=== PATIENT | female | born 1995 | race African-American/Black ===

== ENCOUNTER 2025-03-15 19:08 | Emergency (ER) | payer MEDICAID ==
[~2025-03-15] VITALS: Ht 162.6 cm; Wt 82.0 kg
[2025-03-15 19:14] VITALS: O2SAT 100
[2025-03-15] MEDS: MAGNESIUM/ALUMINUM HYDROXIDE/SIMETHICONE 30ML UDC PO STA (20:20)
[2025-03-15] MEDS: METOCLOPRAMIDE HCL 10MG/2ML VIAL IV STA (20:21)
[2025-03-15] MEDS: FAMOTIDINE 20MG/2ML VIAL IV STA (20:21)
[2025-03-15] MEDS: DIPHENHYDRAMINE 50MG/ML VIAL IV ONE (20:21)
[2025-03-15] MEDS: SODIUM CHLORIDE 0.9% 1,000 ML IV ONE (20:22)
[2025-03-15 21:05] LABS: HEMATOCRIT. 43.5 % (36.0-48.0); HEMOGLOBIN. 14.2 g/dL (12.0-16.0); MEAN PLATELET VOLUME 11.5 fl (7.4-10.4); PLATELET 235 x1000/uL (130-400); RED BLOOD CELL COUNT 4.65 mill/uL (4.2-5.4); RED CELL DISTRIBUTION WIDTH 13.7 % (11.6-14.6)
[2025-03-15 21:19] LABS: CREATININE 0.8 mg/dL (0.6-1.0); UREA NITROGEN BLOOD 8 mg/dL (9-23)
[2025-03-15 21:21] LABS: ASPARTATE AMINOTRANSFERASE 28 IU/L (<34); BILIRUBIN DIRECT 0.2 mg/dL (<=3.0); BILIRUBIN TOTAL 0.9 mg/dL (0.1-1.0); PROTEIN TOTAL 8.2 g/dL (6.0-8.3)
[2025-03-15 21:39] LABS: HCG SCREEN NEGATIVE
[2025-03-15 21:55] LABS: BAND% 2.0 % (1.0-6.0); LYMPHOCYTES % MANUAL 10.0 % (20.0-60.0); MONOCYTES % MANUAL 3.0 % (2.0-8.0); NEUTROPHILS % MANUAL 85.0 % (45.0-75.0); PLATELET ESTIMATE NORMAL
[2025-03-15 22:42] LABS: CLARITY URINE CLOUDY (CLEAR); COLOR URINE YELLOW (YELLOW); SPECIFIC GRAVITY URINE 1.027 (1.005-1.030)
[2025-03-15 22:43] LABS: GLUCOSE URINE NEGATIVE (NEGATIVE); LEUKOCYTE ESTERASE URINE TRACE (NEGATIVE); NITRITE URINE NEGATIVE (NEGATIVE); OCCULT BLOOD URINE NEGATIVE (NEGATIVE); PH URINE 7.5 (4.5-8.0); PROTEIN URINE 1+ (NEGATIVE); UROBILINOGEN URINE 1.0 E.U./dL (0.2-1.0)
[2025-03-15 22:44] LABS: KETONES URINE 4+ (NEGATIVE)
[2025-03-15 22:54] LABS: RBC URINE 0-2 /hpf (0-2); WBC URINE 0-2 /hpf (0-2)
[2025-03-15 22:55] LABS: BACTERIA URINE 3+; SQUAMOUS EPITHELIAL CELL URINE 2+ /lpf (RARE/1+)
[2025-03-15] MEDS ORDERED: ONDA-239 PO (22:55)
[2025-03-15 23:00] VITALS: BP 117/72; PULSE 57; RESP 14; TEMP 37.1; O2SAT 99
== END 2025-03-15 23:23 | disposition home or self-care (01) ==
LOC: ER 19:08
DX: K29.70 Gastritis, unspecified, without bleeding (principal); R10.9 Unspecified abdominal pain; R11.2 Nausea with vomiting, unspecified
CPT/HCPCS: 80076; 80048; 81003; 84703; 85025; 36415; 96361; 96374; 96375; 99284; J1200; J1308; J2765; J7030; Z7610 ×2